=== PATIENT | female | born 1990 | race Caucasian/White ===

== ENCOUNTER 2018-03-08 21:20 | Emergency (ER) | payer BC ==
[2018-03-08] MEDS ORDERED: Meclizine TAB* 12.5 MG PO ONE (23:57)
--- NOTE | 2018-03-08 23:59 | ED ---
Headache - HPI Summary HPI Summary: This patient is a 27 year old F presenting to [facility] accompanied by another female with a chief complaint of an intermittent left temporal headache that began today at 1900. The patient rates the pain 1/10 in severity. Symptoms alleviated by spontaneous resolution, pt states it has resolved since she has been waiting. Patient reports blurred vision described as shimmering, light headedness, and poor balance. Patient denies fever, pain with mastication, and vomiting. She states the VILLANUEVA onset was sudden and only lasted about 5 minutes. She is not on any medications and is not on BC. For the las couple month she has been having spells of rocking dizziness. - History Of Current Complaint Chief Complaint: EDHeadache Stated Complaint: HEADACHE Time Seen by Provider: 03/08/18 23:47 Hx Obtained From: Patient Onset/Duration: Started hours ago, Still Present Currently Pain Is: Current Pain Scale(0-10)= - 1 Timing: Intermittent, Lasting: Associated Signs And Symptoms: Other (Noted In Comments) - blurred vision, light headedness, - Allergies/Home Medications Allergies/Adverse Reactions: Allergies Allergy/AdvReac Type Severity Reaction Status Date / Time No Known Allergies Allergy Verified 03/08/18 21:32 PMH/Surg Hx/FS Hx/Imm Hx Endocrine/Hematology History: Denies: Hx Bone Marrow Disease, Hx Sickle Cell Disease, Hx Anemia Cardiovascular History: Denies: Hx Auto Implanted Cardiovert Defib, Hx Congenital Heart Disease, Hx Embolism, Hx Hypertension Respiratory History: Denies: Hx Chronic Obstructive Pulmonary Disease (COPD), Hx Lung Cancer Sensory History: Reports: Hx Contacts or Glasses Opthamlomology History: Reports: Hx Contacts or Glasses EENT History: Denies: Hx Deafness Neurological History: Reports: Hx Headaches Denies: Hx CVA, Hx Developmental Delay Infectious Disease History: No Infectious Disease History: Denies: Traveled Outside the [place] in Last 30 Days - Family History Known Family History: Positive: Hypertension - Social History Occupation: Student Alcohol Use: Occasionally Hx Substance Use: No Substance Use Type: Reports: None Hx Tobacco Use: No Smoking Status (MU): Never Smoked Tobacco Review of Systems Negative: Fever Positive: Blurred Vision ENT: Negative - pain with chewing Negative: Vomiting Neurological: Other - light headed and poor balance Positive: Headache All Other Systems Reviewed And Are Negative: Yes Physical Exam - Summary Physical Exam Summary: VITAL SIGNS: Reviewed. GENERAL: Patient is a well-developed and nourished female who is lying comfortable in the stretcher. Patient is not in any acute respiratory distress. the patient walked in the ED with steady gait. HEAD AND FACE: No signs of trauma. No ecchymosis, hematomas or skull depressions. No sinus tenderness. EYES: PERRLA, EOMI x 2, No injected conjunctiva, no nystagmus. EARS: Hearing grossly intact. Ear canals and tympanic membranes are within normal limits. MOUTH: Oropharynx within normal limits. NECK: Supple, trachea is midline, no adenopathy, no JVD, no carotid bruit, no c- spine tenderness, neck with full ROM. CHEST: Symmetric, no tenderness at palpation LUNGS: Clear to auscultation bilaterally. No wheezing or crackles. CVS: Regular rate and rhythm, S1 and S2 present, no murmurs or gallops appreciated. ABDOMEN: Soft, non-tender. No signs of distention. No rebound no guarding, and no masses palpated. Bowel sounds are normal. EXTREMITIES: FROM in all major joints, no edema, no cyanosis or clubbing. NEURO: Alert and oriented x 3. No acute neurological deficits. Speech is normal and follows commands. SKIN: Dry and warm Triage Information Reviewed: Yes Vital Signs On Initial Exam: Initial Vitals Temp Pulse Resp BP Pulse Ox 98.0 F 94 16 152/88 99 03/08/18 21:25 03/08/18 21:25 12 21:25 03/08/18 21:25 03/08/18 21:25 Vital Signs Reviewed: Yes - Ynes Coma Scale Best Eye Response: 4 - Spontaneous Best Motor Response: 6 - Obeys Commands Best Verbal Response: 5 - Oriented Coma Scale Total: 15 Diagnostics - Vital Signs Vital Signs Temp Pulse Resp BP Pulse Ox 03/08/18 21:25 98.0 F 94 16 152/88 99 - Laboratory Result Diagrams: 03/09/18 00:15 03/09/18 00:15 Lab Statement: Any lab studies that have been ordered have been reviewed, and results considered in the medical decision making process. - CT CT Head CT Interpretation Completed By: Radiologist Summary of CT Findings: , No acute intracranial abnormality. ED physician has reviewed this radiology report. Headache Course/Dx - Course Assessment/Plan: This patient is a 27 year old F presenting to [facility] accompanied by another female with a chief complaint of an intermittent left temporal headache that began today at 1900. The patient rates the pain 1/10 in severity. Symptoms alleviated by spontaneous resolution, pt states it has resolved since she has been waiting. Patient reports blurred vision described as shimmering, light headedness, and poor balance. Patient denies fever, pain with mastication, and vomiting. She states the VILLANUEVA onset was sudden and only lasted about 5 minutes. She is not on any medications and is not on BC. For the las couple month she has been having spells of rocking dizziness.. Bloodwork obtained. CT Brain reveals, per radiologist, No acute intracranial abnormality. In the ED course the patient was given antivert. Patient will be discharged with prescription for antiver and follow up from PCP. The patient is agreeable with this plan. - Diagnoses Provider Diagnoses: Vertigo Discharge - Sign-Out/Discharge Documenting (check all that apply): Patient Departure - Discharge Plan Condition: Stable Disposition: HOME Prescriptions: Meclizine TAB* [Antivert 12.5 TAB*] 25 mg PO TID PRN #20 tab PRN Reason: Dizziness Patient Education Materials: Vertigo (DC) Referrals: [facility] [Outside] Additional Instructions: Follow up with your primary care physician in 1-3 days. RETURN TO THE EMERGENCY DEPARTMENT FOR CHANGING OR WORSENING SYMPTOMS. - Attestation Statements Document Initiated by Scribe: Yes Documenting Scribe: Deondre Evans Provider For Whom Scribe is Documenting (Include Credential): Linda Marion MD Scribe Attestation: Deondre Davis , [email or web address] for Linda Marion MD on 03/09/18 at 0050. Status of Scribe Document: Ready
[2018-03-09 00:21] LABS: ABS Basophils 0 10^3/ul (0-0.2); ABS Eosinophils 0.1 10^3/ul (0-0.6); ABS Lymphocytes 1.3 10^3/ul (1.0-4.8); ABS Monocytes 0.6 10^3/ul (0-0.8); ABS Neutrophils 7.3 10^3/ul (1.5-7.7); ABS Nucleated RBC 0 10^3/ul; Eosinophil % 0.6 %; Hematocrit 40 % (35-47); Hemoglobin 13.7 g/dl (12.0-16.0); Lymphocyte % 13.9 %; Mean Corpuscular HGB Conc 34 g/dl (31-36); Mean Corpuscular Hemoglobin 31 pg (27-31); Mean Corpuscular Volume 90 fL (80-97); Mean Platelet Volume 7.2 fL (7.4-10.4); Nucleated Red Blood Cells % 0; Platelet Count 272 10^3/ul (150-450); Red Blood Count 4.41 10^6/ul (4.00-5.40); Red Cell Distribution Width 13 % (10.5-15); White Blood Count 9.2 10^3/ul (3.5-10.8)
[2018-03-09 00:40] LABS: EGFR Non-African American 106.4 (>60)
[2018-03-09 01:09] VITALS: BP 125/76
== END 2018-03-09 01:08 | disposition home or self-care (01) ==
LOC: ED 21:20
DX: R42 Dizziness and giddiness (principal)
CPT/HCPCS: 36415; 70450; 80053; 83735; 84702; 85025; 99282; A9270-GY